=== PATIENT | female | born 1955 | race African-American/Black ===

== ENCOUNTER 2017-02-22 18:56 | Emergency (ER) | payer SELFPAY ==
[~2017-02-22] VITALS: Ht 180.3 cm; Wt 145.1 kg
[2017-02-22 19:03] VITALS: BP 173/95
[2017-02-22] MEDS ORDERED: HYDROCODONE/APAP 5/325MG 1 EACH TABLET PO ONE (19:30)
[2017-02-22] MEDS ORDERED: HYDROCODONE/APAP 5/325MG 1 EACH TABLET ONE (19:45)
== END 2017-02-22 21:05 | disposition home or self-care (01) ==
LOC: ER 19:03
DX: R51 Headache (principal); M54.2 Cervicalgia; M25.561 Pain in right knee; I10 Essential (primary) hypertension; W01.198A Fall on same level from slipping, tripping and stumbling with subsequent striking against other object, initial encounter; Y92.512 Supermarket, store or market as the place of occurrence of the external cause; Y93.89 Activity, other specified; Y99.8 Other external cause status
CPT/HCPCS: 73564-TC; A4606; Z7610